=== PATIENT | male | born 1950 | race Caucasian/White ===

== ENCOUNTER 2018-05-13 18:27 | Emergency (ER) | payer BC, MEDICARE ==
[2018-05-13 19:23] VITALS: BP 135/51
--- NOTE | 2018-05-13 19:36 | UC ---
Skin Complaint HPI - HPI Summary HPI Summary: Tripped 4 days ago and injured left great toe. Worsening redness, swelling with drainage. No Fevers. Has diabetic neuropathy, but did have some pain with the first injury. - History of Current Complaint Chief Complaint: UCLowerExtremity Time Seen by Provider: 05/13/18 19:15 Stated Complaint: LEFT FOOT WOUND - POSSIBLY INFECTED Hx Obtained From: Patient Onset/Duration: Sudden Onset, Lasting Days - 4, Worse Since - today Skin Exposure Onset/Duration: Days Ago - 4 Onset Severity: Mild Current Severity: Moderate Pain Intensity: 0 Location: Foot (Left) - Abrasion over the dorsal 1st, 2nd and 3rd toes. Character: Redness - with swelling and serous drainage. Aggravating Factor(s): Nothing Alleviating Factor(s): Nothing Associated Signs & Symptoms: Positive: Numbness, Drainage. Negative: Diaphoresis, Fever, Chills Related History: Trauma - Allergy/Home Medications Allergies/Adverse Reactions: Allergies Allergy/AdvReac Type Severity Reaction Status Date / Time lisinopril Allergy Unknown BREATHING Verified 05/13/18 19:08 PROBLEMS Home Medications: Home Medications Aspirin EC TAB* [Ecotrin EC Low Dose 81 MG*] 81 mg PO DAILY 05/13/18 [History Confirmed 05/13/18] Atenolol TAB* [Tenormin TAB* 25 MG] 25 mg PO BID 05/13/18 [History Confirmed ] Bp Med? Name DAILY 05/13/18 [History] Insulin NPH Human Isophane [Humulin N Kwikpen] 100 unit SC 05/13/18 [History] Insulin REGULAR(*) 0 units SUBCUT AC 05/13/18 [History Confirmed 05/13/18] Losartan TAB* [Cozaar TAB*] 25 mg PO DAILY 05/13/18 [History Confirmed 05/13/18] Simvastatin 20 mg PO DAILY 05/13/18 [History Confirmed 05/13/18] amLODIPine TAB* [Norvasc 5 mg TAB*] 5 mg PO DAILY 05/13/18 [History Confirmed ] PMH/Surg Hx/FS Hx/Imm Hx Endocrine History: Diabetes, Dyslipidemia Cardiovascular History: Hypertension Respiratory History: Asthma - Surgical History Surgical History: Yes Surgery Procedure, Year, and Place: TONSILLECTOMY. LEFT FOOT SURGRY FOR INFECTIONS. CATARACTS - Family History Known Family History: Positive: Cardiac Disease, Hypertension, Diabetes - Social History Occupation: Retired Lives: With Family Alcohol Use: Daily Alcohol Amount: 2 DRINKS AGO Substance Use Type: None Smoking Status (MU): Never Smoked Tobacco Household Exposure Type: Cigarettes Review of Systems All Other Systems Reviewed And Are Negative: Yes Skin: Positive: Other - redness with drainage over toes left foot Is Patient Immunocompromised?: Yes - Diabetes Physical Exam Triage Information Reviewed: Yes Appearance: Well-Appearing, No Pain Distress, Obese Vital Signs: Initial Vital Signs Temp 98.3 F 05/13/18 19:13 Pulse 74 05/13/18 19:13 Resp 18 05/13/18 19:13 BP 135/51 05/13/18 19:13 Pulse Ox 96 05/13/18 19:13 Vital Signs Reviewed: Yes Eyes: Positive: Conjunctiva Clear Neck exam: Normal Respiratory Exam: Normal Cardiovascular Exam: Normal Musculoskeletal: Positive: Edema @ - 2-3 + pretibial edema bilateral down into the feet. Skin: Positive: Other - Swelling, warmth, erythema with abrasion and serous drainage over the first 3 toes left foot. Diagnostics - Radiology No standard instances Radiology Interpretation Completed By: ED Physician Summary of Radiographic Findings: Positive fracture first and second proximal phalynx Course/Dx - Differential Diagnoses - Skin Complaint Differential Diagnoses: Abscess, Cellulitis, Diabetes - Diagnoses Provider Diagnosis: Cellulitis of left foot, Fracture of left great toe, Fracture of second toe, left, closed Discharge - Sign-Out/Discharge Documenting (check all that apply): Patient Departure All imaging exams completed and their final reports reviewed: No - Discharge Plan Condition: Stable Disposition: HOME Prescriptions: Levofloxacin TAB* [Levaquin TAB*] 500 mg PO DAILY #10 tab Patient Education Materials: Cellulitis (ED), Toe Fracture (ED), Levofloxacin ( By mouth) Referrals: Lex Cartagena MD [Primary Care Provider] - Ayad Coates MD [Medical Doctor] - 1 Day (follow up skin infection with fracture diabetic foot) - Billing Disposition and Condition Condition: STABLE Disposition: Home
[2018-05-13] MEDS ORDERED: Levofloxacin TAB* 500 MG PO ONE (20:01)
--- NOTE | 2018-05-14 12:14 | ED ---
Progress - Progress Note Progress Note: Fractures identified as on wet ready by provider. No changes on final report. Course/Dx - Diagnoses Provider Diagnoses: Cellulitis of left foot, Fracture of left great toe, Fracture of second toe, left, closed Discharge - Sign-Out/Discharge Documenting (check all that apply): Patient Departure All imaging exams completed and their final reports reviewed: Yes - Discharge Plan Condition: Stable Disposition: HOME Prescriptions: Levofloxacin TAB* [Levaquin TAB*] 500 mg PO DAILY #10 tab Patient Education Materials: Levofloxacin (By mouth), Toe Fracture (ED), Cellulitis (ED) Referrals: Ayad Coates MD [Medical Doctor] - 1 Day (follow up skin infection with fracture diabetic foot) Lex Cartagena MD [Primary Care Provider] - - Billing Disposition and Condition Condition: STABLE Disposition: Home
== END 2018-05-13 20:19 | disposition home or self-care (01) ==
LOC: UCCORT 18:27
DX: L03.116 Cellulitis of left lower limb (principal); S92.412A Displaced fracture of proximal phalanx of left great toe, initial encounter for closed fracture; S92.512A Displaced fracture of proximal phalanx of left lesser toe(s), initial encounter for closed fracture; W18.40XA Slipping, tripping and stumbling without falling, unspecified, initial encounter; Y92.9 Unspecified place or not applicable; Z88.8 Allergy status to other drugs, medicaments and biological substances; E11.40 Type 2 diabetes mellitus with diabetic neuropathy, unspecified; Z79.4 Long term (current) use of insulin; I10 Essential (primary) hypertension; E78.5 Hyperlipidemia, unspecified
CPT/HCPCS: 99203; G0463